=== PATIENT | female | born 1940 | race African-American/Black ===

== ENCOUNTER 2023-10-26 10:06 | Inpatient (IN) | payer OTHER ==
[~2023-10-26] VITALS: Ht 162.6 cm; Wt 68.9 kg
[2023-10-26] MEDS: SODIUM CHLORIDE 0.9% 1,000 ML IV ONE (10:53)
[2023-10-26 11:08] LABS: HEMATOCRIT. 24.2 % (36.0-48.0); HEMOGLOBIN. 7.4 g/dL (12.0-16.0); MEAN CORPUSCULAR HEMOGLOBIN 25.2 pg (28.0-32.0); MEAN CORPUSCULAR HGB CONC 30.6 g/dL (31.0-37.0); MEAN CORPUSCULAR VOLUME 82.4 fL (81.0-99.0); MEAN PLATELET VOLUME 7.6 fl (7.4-10.4); PLATELET 168 x1000/uL (130-400); RED BLOOD CELL COUNT 2.93 mill/uL (4.2-5.4)
[2023-10-26 11:12] LABS: CHLORIDE 111 mEq/L (98-107); POTASSIUM 4.2 mEq/L (3.5-5.1); SODIUM 138 mEq/L (136-145)
[2023-10-26 11:13] LABS: CARBON DIOXIDE 18 mEq/L (21-32)
[2023-10-26 11:16] LABS: D-DIMER 4.33 mg/L FEU (<0.50); INR 1.1; PROTHROMBIN TIME 11.7 sec (9.6-11.0)
[2023-10-26 11:18] LABS: CREATININE 1.5 mg/dL (0.6-1.0); GLUCOSE 83 mg/dL (70-105); UREA NITROGEN BLOOD 41 mg/dL (9-23)
[2023-10-26 11:20] LABS: DIFFERENTIAL COMMENT 1
[2023-10-26 11:24] LABS: TROPONIN I HIGH SENSITIVITY 50 ng/L (3.0-34)
[2023-10-26] MEDS ORDERED: DOCUSATE SODIUM 100MG CAPSULE PO PRN (14:00)
[2023-10-26] MEDS ORDERED: CLONIDINE 0.1MG TABLET PO PRN (14:00)
[2023-10-26] MEDS ORDERED: IPRATROPIUM/ALBUTEROL 0.5-3(2.5)MG/3ML NEB HHN PRN (14:00)
[2023-10-26] MEDS ORDERED: ONDANSETRON HCL 4MG/2ML INJ IV PRN (14:00)
[2023-10-26] MEDS ORDERED: ATOR20TA65 PO (14:03)
[2023-10-26] MEDS ORDERED: LISI10TA26 PO (14:03)
[2023-10-26] MEDS ORDERED: AMLO5TAB88 PO (14:03)
[2023-10-26] MEDS ORDERED: METO25TA6 PO (14:03)
[2023-10-26] MEDS ORDERED: FLUT12AE7 IH (14:03)
[2023-10-26 14:33] LABS: BG BASE EXCESS -9.9 mmol/L (-2.0-3.0); BG CARBOXYHEMOGLOBIN 0.3 % (0.5-1.5); BG DEOXYHEMOGLOBIN 0.5 % (0.0-5.0); BG FRACTION INSPIRED OXYGEN 21; BG HCO3 ACT 13.1 mmol/L (21.0-28.0); BG METHEMOGLOBIN 0.3 % (0.5-1.5); BG OXYGEN SATURATION 99.5 % (94.0-98.0); BG OXYHEMOGLOBIN 98.9 % (94.0-98.0); BG PCO2 19.9 mmHg (32.0-45.0); BG PH 7.436 (7.350-7.450); BG PO2 151.7 mmHg (83.0-108.0); BG SAMPLE SITE LEFT BRACHIAL; BG TOTAL HEMOGLOBIN 7.5 g/dL (12.0-16.0); BG VENT MODE ROOM AIR
[2023-10-26 14:39] LABS: IRON 99 ug/dL (50-170)
[2023-10-26 14:40] LABS: LDL CHOLESTEROL 31 mg/dL (5-100); TRIGLYCERIDE 55 mg/dL (0-150)
[2023-10-26 14:41] LABS: CHOLESTEROL 108 mg/dL (<200); HDL CHOLESTEROL 63 mg/dL (>65); LACTATE DEHYDROGENASE 263 IU/L (120-246)
[2023-10-26 14:42] LABS: TOTAL IRON BINDING CAPACITY 262 ug/dl (250-425)
[2023-10-26 14:44] LABS: T4 FREE 1.12 ng/dL (0.89-1.76)
[2023-10-26 14:46] LABS: FERRITIN 190 ng/mL (10-291)
[2023-10-26 14:49] LABS: FOLIC ACID (FOLATE) SERUM 14.76 ng/mL (>5.38); VITAMIN B12 SERUM 1271 pg/mL (211-911)
[2023-10-26] MEDS: AMLODIPINE 5MG TABLET PO SCH (15:21)
[2023-10-26] MEDS: ATORVASTATIN CALCIUM 20MG TABLET PO SCH (15:21)
[2023-10-26] MEDS: SODIUM CHLORIDE 0.9% 1,000 ML IV SCH (15:22)
[2023-10-26 15:38] LABS: TROPONIN I HIGH SENSITIVITY 58 ng/L (3.0-34)
[2023-10-26 16:28] LABS: PLATELET ESTIMATE NORMAL
[2023-10-26 16:29] LABS: ANISOCYTOSIS 2+; HYPOCHROMASIA 1+; OVALOCYTES 1+
[2023-10-26 20:00] VITALS: BP 146/70; PULSE 89; RESP 20; TEMP 36.61404; O2SAT 98
[2023-10-26 21:05] LABS: HEMATOCRIT 26.2 % (36.0-48.0); HEMOGLOBIN 8.3 g/dL (12.0-16.0); MEAN CORPUSCULAR HEMOGLOBIN 26.3 pg (28.0-32.0); MEAN CORPUSCULAR HGB CONC 31.8 g/dL (31.0-37.0); MEAN CORPUSCULAR VOLUME 82.5 fL (81.0-99.0); PLATELET 167 x1000/uL (130-400); RED BLOOD CELL COUNT 3.17 mill/uL (4.2-5.4); RED CELL DISTRIBUTION WIDTH 17.6 % (11.6-14.6)
[2023-10-26 21:49] LABS: TROPONIN I HIGH SENSITIVITY 234 ng/L (3.0-34)
[2023-10-26 22:00] VITALS: BP 146/70; PULSE 89; RESP 18; TEMP 36.6404
[2023-10-26] MEDS: FAMOTIDINE 20MG TABLET PO SCH (23:53)
[2023-10-27] VITALS (7 sets, daily range): BP systolic 116–145; BP diastolic 60–75; PULSE 72–89; RESP 18–20; TEMP 36.33624–37.16964; O2SAT 97–99
[2023-10-27 02:19] LABS: HEMATOCRIT 27.9 % (36.0-48.0); HEMOGLOBIN 8.7 g/dL (12.0-16.0); MEAN CORPUSCULAR HEMOGLOBIN 26.1 pg (28.0-32.0); MEAN CORPUSCULAR HGB CONC 31.4 g/dL (31.0-37.0); MEAN CORPUSCULAR VOLUME 83.2 fL (81.0-99.0); PLATELET 175 x1000/uL (130-400); RED BLOOD CELL COUNT 3.35 mill/uL (4.2-5.4); RED CELL DISTRIBUTION WIDTH 17.4 % (11.6-14.6); WHITE BLOOD COUNT 4.4 x1000/uL (4.5-11.0)
[2023-10-27] MEDS: MAGNESIUM/ALUMINUM HYDROXIDE/SIMETHICONE 30ML UDC PO PRN (03:16)
[2023-10-27 05:54] LABS: POTASSIUM 4.3 mEq/L (3.5-5.1)
[2023-10-27 05:55] LABS: CALCIUM 9.2 mg/dL (8.7-10.4)
[2023-10-27 06:00] LABS: CREATININE 1.4 mg/dL (0.6-1.0)
[2023-10-27 06:39] LABS: BASOPHILS % 0.7 % (0.0-2.0); EOSINOPHILS % 2.7 % (0.0-5.0); HEMATOCRIT. 26.1 % (36.0-48.0); HEMOGLOBIN. 8.2 g/dL (12.0-16.0); LYMPHOCYTES % 15.1 % (20.0-50.0); MEAN CORPUSCULAR HEMOGLOBIN 25.8 pg (28.0-32.0); MEAN CORPUSCULAR HGB CONC 31.5 g/dL (31.0-37.0); MEAN CORPUSCULAR VOLUME 81.7 fL (81.0-99.0); MEAN PLATELET VOLUME 7.9 fl (7.4-10.4); MONOCYTES % 12.3 % (2.0-8.0); NEUTROPHILS % 69.2 % (40.0-76.0); PLATELET 177 x1000/uL (130-400); RED CELL DISTRIBUTION WIDTH 17.2 % (11.6-14.6); WHITE BLOOD COUNT 3.7 x1000/uL (4.5-11.0)
[2023-10-27] MEDS ORDERED: IOHEXOL-350 100 ML BOTTLE ONE (07:35)
[2023-10-27 10:53] LABS: *AMPHETAMINES SCREEN URINE NEGATIVE (NEGATIVE); *BARBITURATES SCREEN URINE NEGATIVE (NEGATIVE); *BENZODIAZEPINES SCREEN URINE NEGATIVE (NEGATIVE); *COCAINE SCREEN URINE NEGATIVE (NEGATIVE); METHADONE URINE SCREEN NEGATIVE (NEGATIVE)
[2023-10-27 10:54] LABS: CANNABINOID URINE SCREEN NEGATIVE (NEGATIVE); ECSTASY MDMA SCREEN URINE NEGATIVE (NEGATIVE); OPIATES URINE SCREEN NEGATIVE (NEGATIVE); PHENCYCLIDINE URINE SCREEN NEGATIVE (NEGATIVE)
[2023-10-27 12:51] LABS: TROPONIN I HIGH SENSITIVITY 326 ng/L (3.0-34)
[2023-10-27 17:05] LABS: CLARITY URINE CLEAR (CLEAR); COLOR URINE YELLOW (YELLOW); GLUCOSE URINE NEGATIVE (NEGATIVE); KETONES URINE NEGATIVE (NEGATIVE); LEUKOCYTE ESTERASE URINE 1+ (NEGATIVE); NITRITE URINE NEGATIVE (NEGATIVE); OCCULT BLOOD URINE TRACE (NEGATIVE); PROTEIN URINE 1+ (NEGATIVE); SPECIFIC GRAVITY URINE 1.025 (1.005-1.030); UROBILINOGEN URINE 0.2 E.U./dL (0.2-1.0)
[2023-10-27 17:26] LABS: BACTERIA URINE 1+; SQUAMOUS EPITHELIAL CELL URINE 1+ /lpf (RARE/1+); WBC URINE 15-25 /hpf (0-2); YEAST URINE NONE SEEN
[2023-10-27 21:51] LABS: CHLORIDE 115 mEq/L (98-107); POTASSIUM 4.5 mEq/L (3.5-5.1); SODIUM 140 mEq/L (136-145)
[2023-10-27 21:52] LABS: CARBON DIOXIDE 18 mEq/L (21-32)
[2023-10-27 21:53] LABS: CALCIUM 8.8 mg/dL (8.7-10.4)
[2023-10-27 21:57] LABS: CREATININE 1.4 mg/dL (0.6-1.0); GLUCOSE 107 mg/dL (70-105)
[2023-10-27 21:58] LABS: UREA NITROGEN BLOOD 27 mg/dL (9-23)
[2023-10-27 21:59] LABS: ALANINE AMINOTRANSFERASE 104 IU/L (10-49); ALBUMIN 3.5 g/dL (3.2-4.8); ASPARTATE AMINOTRANSFERASE 74 IU/L (<34); CREATINE KINASE 105 IU/L (34-145)
[2023-10-27 22:00] LABS: BILIRUBIN TOTAL 0.4 mg/dL (0.1-1.0); PROTEIN TOTAL 5.7 g/dL (6.0-8.3)
[2023-10-28] VITALS: BP 143/67; PULSE 74; RESP 18; TEMP 36.61404; O2SAT 98
[2023-10-28 04:00] VITALS: BP 145/71; PULSE 78; RESP 18; TEMP 37.00296; O2SAT 98
[2023-10-28 07:22] LABS: BASOPHILS % 0.6 % (0.0-2.0); EOSINOPHILS % 1.8 % (0.0-5.0); HEMATOCRIT. 24.2 % (36.0-48.0); HEMOGLOBIN. 7.8 g/dL (12.0-16.0); LYMPHOCYTES % 19.9 % (20.0-50.0); MEAN CORPUSCULAR HEMOGLOBIN 26.4 pg (28.0-32.0); MEAN CORPUSCULAR HGB CONC 32.2 g/dL (31.0-37.0); MEAN CORPUSCULAR VOLUME 82.1 fL (81.0-99.0); MEAN PLATELET VOLUME 7.6 fl (7.4-10.4); MONOCYTES % 13.1 % (2.0-8.0); NEUTROPHILS % 64.6 % (40.0-76.0); PLATELET 166 x1000/uL (130-400); RED BLOOD CELL COUNT 2.95 mill/uL (4.2-5.4); RED CELL DISTRIBUTION WIDTH 17.6 % (11.6-14.6); WHITE BLOOD COUNT 3.8 x1000/uL (4.5-11.0)
[2023-10-28 08:00] VITALS: BP 134/65; PULSE 79; RESP 18; TEMP 36.50292; O2SAT 99
[2023-10-28 12:00] VITALS: BP 157/73; PULSE 90; RESP 18; TEMP 36.50292; O2SAT 97
[2023-10-28 13:33] LABS: TROPONIN I HIGH SENSITIVITY 194 ng/L (3.0-34)
[2023-10-28 16:00] VITALS: BP 154/77; PULSE 83; RESP 16; TEMP 36.61404; O2SAT 98
[2023-10-28 18:47] LABS: TROPONIN I HIGH SENSITIVITY 182 ng/L (3.0-34)
[2023-10-28 20:00] VITALS: BP 161/74; PULSE 78; RESP 18; TEMP 37.39188
[2023-10-29] VITALS: BP 160/79; PULSE 81; RESP 20; TEMP 36.78072; O2SAT 98
[2023-10-29 01:24] LABS: TROPONIN I HIGH SENSITIVITY 165 ng/L (3.0-34)
[2023-10-29 04:00] VITALS: BP 161/86; PULSE 82; RESP 20; TEMP 37.72524; O2SAT 98
[2023-10-29 06:48] LABS: CHLORIDE 115 mEq/L (98-107); POTASSIUM 4.1 mEq/L (3.5-5.1); SODIUM 142 mEq/L (136-145)
[2023-10-29 06:49] LABS: CALCIUM 8.9 mg/dL (8.7-10.4); CARBON DIOXIDE 18 mEq/L (21-32)
[2023-10-29 06:52] LABS: BASOPHILS % 0.4 % (0.0-2.0); EOSINOPHILS % 1.7 % (0.0-5.0); HEMATOCRIT. 23.6 % (36.0-48.0); HEMOGLOBIN. 7.4 g/dL (12.0-16.0); LYMPHOCYTES % 17.7 % (20.0-50.0); MEAN CORPUSCULAR HEMOGLOBIN 25.6 pg (28.0-32.0); MEAN CORPUSCULAR HGB CONC 31.2 g/dL (31.0-37.0); MEAN CORPUSCULAR VOLUME 82.2 fL (81.0-99.0); MEAN PLATELET VOLUME 7.8 fl (7.4-10.4); MONOCYTES % 12.9 % (2.0-8.0); NEUTROPHILS % 67.3 % (40.0-76.0); PLATELET 159 x1000/uL (130-400); RED BLOOD CELL COUNT 2.87 mill/uL (4.2-5.4); RED CELL DISTRIBUTION WIDTH 17.5 % (11.6-14.6); WHITE BLOOD COUNT 4.2 x1000/uL (4.5-11.0)
[2023-10-29 06:54] LABS: CREATININE 1.3 mg/dL (0.6-1.0); GLUCOSE 85 mg/dL (70-105); UREA NITROGEN BLOOD 22 mg/dL (9-23)
[2023-10-29 06:56] LABS: ALANINE AMINOTRANSFERASE 67 IU/L (10-49); ALBUMIN 3.4 g/dL (3.2-4.8); ASPARTATE AMINOTRANSFERASE 36 IU/L (<34); BILIRUBIN TOTAL 0.5 mg/dL (0.1-1.0); PROTEIN TOTAL 5.6 g/dL (6.0-8.3)
[2023-10-29 06:57] LABS: FERRITIN 215 ng/mL (10-291)
[2023-10-29 07:09] LABS: HEPATITIS B SURFACE ANTIGEN NEGATIVE (Negative)
[2023-10-29 07:29] LABS: HEPATITIS A AB IGM NEGATIVE (Negative)
[2023-10-29 07:30] LABS: HEPATITIS B CORE AB IGM NEGATIVE (Negative); HEPATITIS C AB NON REACTIVE (Neg) (Negative)
[2023-10-29 08:00] VITALS: BP 148/76; PULSE 70; RESP 18; TEMP 36.44736; O2SAT 96
[2023-10-29 12:00] VITALS: BP 138/67; PULSE 74; RESP 18; TEMP 36.6696; TEMP 36.66960; O2SAT 97
[2023-10-29 15:17] LABS: HEMATOCRIT 24.4 % (36.0-48.0); HEMOGLOBIN 7.9 g/dL (12.0-16.0)
[2023-10-29 17:07] VITALS: BP 152/75; PULSE 85; TEMP 98.6; O2SAT 99
[2023-10-30 13:11] LABS: A/G RATIO 1.3 (0.7-1.7); ALBUMIN 3.1 g/dL (2.9-4.4); ALPHA-1-GLOBULIN 0.2 g/dL (0.0-0.4); ALPHA-2-GLOBULIN 0.6 g/dL (0.4-1.0); GAMMA GLOBULINS 0.7 g/dL (0.4-1.8); GLOBULIN TOTAL 2.4 g/dL (2.2-3.9); M-SPIKE Not Observed g/dL (Not Observed); TOTAL PROTEIN SERUM 5.5 g/dL (6.0-8.5)
== END 2023-10-29 18:15 | disposition home or self-care (01) | DRG 811 ==
LOC: ER 10:06 → EDBEDREQ 11:56 → EDBEDREQTM 11:56 → 5WST 13:04 → EDBEDREQTM 13:07 → EDBEDREQ 13:07 → 7WST 21:38
PROVIDERS: ADMIT Internal Medicine; ATTEND Internal Medicine
PROC: 30233N1 Transfusion of Nonautologous Red Blood Cells into Peripheral Vein, Percutaneous Approach (ICD-10-PCS; principal; 2023-10-26)
DX: D62 Acute posthemorrhagic anemia (principal); I21.A1 Myocardial infarction type 2; N39.0 Urinary tract infection, site not specified; N17.9 Acute kidney failure, unspecified; I25.10 Atherosclerotic heart disease of native coronary artery without angina pectoris; J44.9 Chronic obstructive pulmonary disease, unspecified; N18.9 Chronic kidney disease, unspecified; K64.4 Residual hemorrhoidal skin tags; F17.210 Nicotine dependence, cigarettes, uncomplicated; I12.9 Hypertensive chronic kidney disease with stage 1 through stage 4 chronic kidney disease, or unspecified chronic kidney disease; R74.01 Elevation of levels of liver transaminase levels; E78.5 Hyperlipidemia, unspecified; Z95.5 Presence of coronary angioplasty implant and graft; Z79.82 Long term (current) use of aspirin; Z88.0 Allergy status to penicillin; Z79.899 Other long term (current) drug therapy; Z86.79 Personal history of other diseases of the circulatory system; Z90.49 Acquired absence of other specified parts of digestive tract; Z90.710 Acquired absence of both cervix and uterus; Z88.6 Allergy status to analgesic agent
CPT/HCPCS: 36415; 36600; 71045; 71275; 76700; 76770; 80048; 80053; 80061; 80305; 81003; 82270; 82375; 82550; 82607; 82728; 82746; 82805; 83540; 83550; 83615; 83880; 84155; 84165; 84439; 84443; 84484; 85014; 85018; 85025; 85027; 85044; 85379; 85651; 86705; 86709; 86850; 86880; 86900; 86920; 87340; 93005; 93970; 97162; 99285; J7030; P9016; Q9967